=== PATIENT | female | born 1990 | race Caucasian/White ===

== ENCOUNTER 2022-03-11 01:06 | Emergency (ER) | payer BC, SELFPAY ==
[2022-03-11 01:13] VITALS: BP 110/57; PULSE 60; RESP 18; TEMP 36.9; O2SAT 100; BMI 23.3
--- NOTE | 2022-03-11 01:13 | CTR_ITS ---
PROCEDURE INFORMATION: Exam: CT Abdomen And Pelvis With Contrast Exam date and time: 03/11/2022 1:56 AM Age: 31 years old Clinical indication: Abdominal pain; Localized; Left lower quadrant (llq); Patient HX: Llq pain with nausea; Additional info: Llq pain, severe TECHNIQUE: Imaging protocol: Computed tomography of the abdomen and pelvis with contrast. Radiation optimization: All CT scans at this facility use at least one of these dose optimization techniques: automated exposure control; mA and/or kV adjustment per patient size (includes targeted exams where dose is matched to clinical indication); or iterative reconstruction. Contrast material: OMNI 350; Contrast volume: 100 ml; Contrast route: INTRAVENOUS (IV); COMPARISON: No relevant prior studies available. RADIATION DOSE METRICS: Total DLP (mGy-cm): 355.31 FINDINGS: Lungs: The visualized lung bases are clear. Liver: Numerous tiny hepatic cystic foci are visualized. These are subcentimeter in size. Liver is mildly enlarged. Gallbladder and bile ducts: No calcified gallstones or biliary dilation identified. Pancreas: Unremarkable with no suspicious mass. No ductal dilation. Spleen: The spleen is not enlarged. No suspicious enhancing mass is noted. Adrenal glands: Normal. No mass. Kidneys and ureters: No solid renal mass or hydronephrosis. Stomach and bowel: The colon is moderately fecal filled. Occasional sigmoid diverticula. Tortuous left colon. Appendix: Normal appendix. Intraperitoneal space: Small pelvic free fluid. Vasculature: No AAA or acute vascular lesion identified. Lymph nodes: No enlarged lymph nodes. Urinary bladder: Unremarkable as visualized. Reproductive: A left ovarian cystic lesion measures up to 2.6 cm. Anteverted uterus. Bones/joints: No acute fracture. Soft tissues: No acute or suspicious finding noted. CT/CT abdomen pelvis w con* [id number] IMPRESSION: 1. Left ovarian 2.6 cm cyst with mild to moderate pelvic free fluid. A hemorrhagic cyst or ruptured follicle is very likely. Consider need for pelvic ultrasound. 2. Moderately fecal filled colon. No small bowel obstruction, abscess or free air. 3. Large liver with numerous minute hepatic cysts as described.
--- NOTE | 2022-03-11 01:14 | W.ED.ABDPA2 ---
Documented by User: [email or web address] Hi 03/11/22 03:17 HPI - Abdominal Pain General: Chief Complaint: Abdominal Pain Stated Complaint: ABD Pain Time Seen by Provider: 03/11/22 01:09 History of Present Illness: 31-year-old female comes in today with left lower quadrant abdominal pain. Patient reports pain started this morning. Patient denies any abnormal vaginal discharge or bleeding. Last menstrual cycle was 1 month ago. Patient has no chronic medical problems. Patient takes no routine medications. Patient reports that the pain is worsened this evening. Patient appears nontoxic. Patient appears in moderate to severe pain. Associated Symptoms: Denies fever(s) Review of Systems Const: Denies: fever(s) GI: Reports: abdominal pain Physical Exam Const: COMMON NORMALS: alert HENMT: COMMON NORMALS: normocephalic HEAD & SCALP: normocephalic NOSE: Normal nares present Neck/C-Spine: COMMON NORMALS: full ROM Resp: COMMON NORMALS: normal respiratory effort and clear to auscultation bilaterally AUSCULTATION: clear to auscultation bilaterally Cardio: COMMON NORMALS: regular rate and regular rhythm RATE: regular rate RHYTHM: regular rhythm GI: COMMON NORMALS: Soft to palpation AUSCULTATION: Yes normoactive bowel sounds PALPATION: Yes Soft to palpation and Yes Tenderness to palpation present (GI) Details: LLQ Extremity: COMMON NORMALS: no pedal edema Neuro: SENSORIUM/ORIENTATION: Yes alert Skin: COMMON NORMALS: turgor normal GENERAL SKIN EXAM: turgor normal Course ED course: 0230, patient reports some improvement in pain to the left lower quadrant of abdomen. Patient does have waves of pain though that is uncomfortable at times. We are awaiting CT report and urinalysis report. 0316, reviewed with patient abnormality on the CT showing left ovarian cyst/ruptured recommending ultrasound for further evaluation to rule out ovarian torsion. Patient reported understanding and agreed to plan. Dr. Cadet was informed of patient and agreed to assume care. Vital Signs: Vital signs: Vital Signs Temperature 98.4 F 03/11/22 01:13 Pulse Rate 60 03/11/22 01:13 Respiratory Rate 16 03/11/22 01:29 Blood Pressure 110/57 03/11/22 01:13 Pulse Oximetry 100 03/11/22 01:13 Oxygen Delivery Me thod 03/11/22 01:13 MDM - Abdominal Pain Medical Decision Making Patient comes in today with complaints of left lower quadrant abdominal pain. On exam patient's abdomen soft with normoactive bowel sounds tenderness in the left lower quadrant. Differential diagnosis includes but not limited to ovarian cyst, ovarian torsion, renal calculi, diverticulitis, constipation, appendicitis. Lab Data 03/11/22 01:25 03/11/22 01:25 Labs/Radiology: Radiology Impressions Abdomen/Pelvis CT 03/11/22 01:13 IMPRESSION: 1. Left ovarian 2.6 cm cyst with mild to moderate pelvic free fluid. A hemorrhagic cyst or ruptured follicle is very likely. Consider need for pelvic ultrasound. 2. Moderately fecal filled colon. No small bowel obstruction, abscess or free air. 3. Large liver with numerous minute hepatic cysts as described. Pelvis Ultrasound 03/11/22 03:09 IMPRESSION: 1. Large bilateral ovaries, which does raise concern for PCOS. Advise correlation. 2. No evidence of torsion. 3. Small left ovarian cyst or follicle. 4. Small pelvic free fluid. Laboratory Results WBC 11.1 10^3/uL (4.0-10.0) H 03/11/22 01:25 RBC 3.96 10^6/uL (4.1-5.3) L 03/11/22 01:25 Hgb 12.2 g/dL (11.5-15.3) 03/11/22 01:25 Hct 37.1 % (37.0-47.0) 03/11/22 01:25 MCV 93.7 fl (81-99) 03/11/22 01:25 MCH 30.8 pg (28.0-34.0) 03/11/22 01:25 MCHC 32.9 g/dL (30.0-36.0) 03/11/22 01:25 RDW 12.0 % (12.1-15.1) L 03/11/22 01:25 Plt Count 251 10^3/cmm (130-400) 03/11/22 01:25 MPV 11.1 fL (7.4-10.4) H 03/11/22 01:25 Neut % (Auto) 56.6 % 03/11/22 01:25 Lymph % (Auto) 34.2 % 03/11/22 01:25 [place] % (Auto) 7.4 % 03/11/22 01:25 Eos % (Auto) 1.2 % 03/11/22 01:25 Baso % (Auto) 0.4 % 03/11/22 01:25 Neut # (Auto) 6.31 10^3/uL (1.8-7.7) 03/11/22 01:25 Lymph # (Auto) 3.8 10^3/uL (0.8-4.8) 03/11/22 01:25 [place] # (Auto) 0.8 10^3/uL (0.2-0.9) 03/11/22 01:25 Eos # (Auto) 0.1 10^3/uL (0.0-0.8) 03/11/22 01:25 Baso # (Auto) 0.0 10^3/uL (0.0-0.1) 03/11/22 01:25 Nucleated RBC % (auto) 0 % 03/11/22 01:25 Nucleated RBCs # 0.0 /100WBC 03/11/22 01:25 Sodium 136 mmol/L (136-145) 03/11/22 01:25 Potassium 3.6 mmol/L (3.5-5.1) 03/11/22 01:25 Chloride 101 mmol/L (98-107) 03/11/22 01:25 Carbon Dioxide 23 mmol/L (22-29) 03/11/22 01:25 Anion Gap 15.6 (5-19) 03/11/22 01:25 BUN 18 mg/dL (6-20) 03/11/22 01:25 Creatinine 0.7 mg/dL (0.5-0.9) 03/11/22 01:25 GFR Calculation 96.4 mL/min (90-130) 03/11/22 01:25 Glucose 109 mg/dL (65-115) 03/11/22 01:25 Calculated Osmolality 284 mOsm/kg (285-295) L 03/11/22 01:25 Calcium 8.8 mg/dL (8.5-10.5) 03/11/22 01:25 Total Bilirubin 0.5 mg/dL (0.15-1.2) 03/11/22 01:25 AST 16 U/L (0-32) 03/11/22 01:25 ALT 11 U/L (0-33) 03/11/22 01:25 Alkaline Phosphatase 49 U/L (35-105) 03/11/22 01:25 Total Protein 7.0 g/dL (6.6-8.7) 03/11/22 01:25 Albumin 4.3 g/dL (3.5-5.2) 03/11/22 01:25 Globulin 2.7 g/dL (1.3-4.6) 03/11/22 01:25 Lipase 75 U/L (13-60) H 03/11/22 01:25 HCG, Qual Negative (Negative) 03/11/22 01:25 Urine Color Yellow (Yellow) 03/11/22 02:11 Urine Appearance Clear (CLEAR) 03/11/22 02:11 Urine pH 8 (5-7) H 03/11/22 02:11 Ur Specific [place] 1.015 (1.005-1.030) 03/11/22 02:11 Urine Protein Neg (Negative) 03/11/22 02:11 Urine Glucose (UA) Norm (Normal) 03/11/22 02:11 Urine Ketones 1+ (Negative) H 03/11/22 02:11 Urine Blood Neg (Negative) 03/11/22 02:11 Urine Nitrate Negative (Negative) 03/11/22 02:11 Urine Bilirubin Neg (Negative) 03/11/22 02:11 Prot Sulfosalicylic Acd Negative (Negative) 03/11/22 02:11 Urine Urobilinogen Norm mg/dL (Negative) 03/11/22 02:11 Ur Leukocyte Esterase Negative (Negative) 03/11/22 02:11 Discharge Plan Discharge Patient Disposition: Home Clinical Impression: Abdominal pain, Ovarian cyst Condition: Stable Prescriptions: New hydrocodone-acetaminophen 5-325 mg tablet 1 tab PO Q6H PRN (Reason: pain) Qty: 14 0RF ondansetron 4 mg tablet,disintegrating 4 mg PO Q6H PRN (Reason: nausea and vomiting) Qty: 14 0RF Discharge Orders: Discharge ED (Routine); Ordered 03/11/22 Ordered By: Orquidea Cadet Discharge Diet: Advance as tolerated Discharge Activity: Resume usual activity Patient Instructions: Ovarian Cyst (ED), Abdominal Pain (ED), Opioid Safety Coding Level of Care Code ED Bar Tacker for Chg Fwd Exam Comprehensive Documented by User: Orquidea Cadet MD 03/11/22 05:31 HPI - Abdominal Pain General: Chief Complaint: Abdominal Pain Stated Complaint: ABD Pain Time Seen by Provider: 03/11/22 01:09 Course Vital Signs: Vital signs: Vital Signs Temperature 98.4 F 03/11/22 01:13 Pulse Rate 60 03/11/22 01:13 Respiratory Rate 16 03/11/22 01:29 Blood Pressure 110/57 03/11/22 01:13 Pulse Oximetry 100 03/11/22 01:13 Oxygen Delivery Me thod 03/11/22 01:13 MDM - Abdominal Pain Medical Decision Making Patient comes in today with complaints of left lower quadrant abdominal pain. On exam patient's abdomen soft with normoactive bowel sounds tenderness in the left lower quadrant. Differential diagnosis includes but not limited to ovarian cyst, ovarian torsion, renal calculi, diverticulitis, constipation, appendicitis. Patient presents with abdominal pain likely from ovarian cyst ultrasound showed findings likely PCOS she has no signs of torsion her pains improved here she is to follow-up with her OB at [place] home we will prescribe her pain meds she is to return if worsening. Lab Data 03/11/22 01:25 03/11/22 01:25 Labs/Radiology: Radiology Impressions Abdomen/Pelvis CT 03/11/22 01:13 IMPRESSION: 1. Left ovarian 2.6 cm cyst with mild to moderate pelvic free fluid. A hemorrhagic cyst or ruptured follicle is very likely. Consider need for pelvic ultrasound. 2. Moderately fecal filled colon. No small bowel obstruction, abscess or free air. 3. Large liver with numerous minute hepatic cysts as described. Pelvis Ultrasound 03/11/22 03:09
[2022-03-11] MEDS: ketorolac 30 mg/mL INJ 15 MG IVP (01:28)
[2022-03-11 01:29] VITALS: RESP 16
[2022-03-11] MEDS: ondansetron 2 mg/ML SDV 2 mL 4 MG IVP (01:29)
[2022-03-11] MEDS: morphine 4 mg/mL SDV 1 mL IVP ×2 (01:29→03:28)
[2022-03-11 01:35] LABS: Basophils % 0.4 %; Eosinophils # 0.1 10^3/uL (0.0-0.8); Eosinophils % 1.2 %; Hematocrit 37.1 % (37.0-47.0); Hemoglobin 12.2 g/dL (11.5-15.3); Lymphocytes # 3.8 10^3/uL (0.8-4.8); Lymphocytes % 34.2 %; Mean Corpuscular HGB Conc 32.9 g/dL (30.0-36.0); Mean Corpuscular Hemoglobin 30.8 pg (28.0-34.0); Mean Corpuscular Volume 93.7 fl (81-99); Mean Platelet Volume 11.1 fL (7.4-10.4); Monocytes # 0.8 10^3/uL (0.2-0.9); Monocytes % 7.4 %; Neutrophils # 6.31 10^3/uL (1.8-7.7); Neutrophils % 56.6 %; Nucleated Red Blood Cells % 0 %; Platelet Count 251 10^3/cmm (130-400); Red Blood Count 3.96 10^6/uL (4.1-5.3); White Blood Count 11.1 10^3/uL (4.0-10.0)
[2022-03-11 01:48] LABS: HCG, Serum Qual Negative (Negative)
[2022-03-11 01:57] LABS: Alanine Aminotransferase 11 U/L (0-33); Albumin Level 4.3 g/dL (3.5-5.2); Alkaline Phosphatase 49 U/L (35-105); Anion Gap 15.6 (5-19); Aspartate Amino Transferase 16 U/L (0-32); Blood Urea Nitrogen 18 mg/dL (6-20); Calcium 8.8 mg/dL (8.5-10.5); Carbon Dioxide 23 mmol/L (22-29); Chloride 101 mmol/L (98-107); Globulin 2.7 g/dL (1.3-4.6); Glomerular Filtration Rate 96.4 mL/min (90-130); Glucose 109 mg/dL (65-115); Lipase 75 U/L (13-60); Osmolality Calculated 284 mOsm/kg (285-295); Potassium 3.6 mmol/L (3.5-5.1); Sodium 136 mmol/L (136-145); Total Bilirubin 0.5 mg/dL (0.15-1.2)
[2022-03-11] MEDS: iohexol 350 mg/mL 500 mL Btl (per mL) IV (02:04)
[2022-03-11 02:15] VITALS: BP 109/62; PULSE 64; RESP 20; O2SAT 98
[2022-03-11 02:19] LABS: Add Urine Microscopic? NO; Charge for UA Resulting for Rev
[2022-03-11 02:45] LABS: Bilirubin Urine Neg (Negative); Blood Urine Neg (Negative); Glucose Urine UA Norm (Normal); Ketones Urine 1+ (Negative); Leukocyte Esterase Urine Negative (Negative); Nitrate Urine Negative (Negative); Protein Urine Neg (Negative); Specific Gravity, Urine 1.015 (1.005-1.030); Sulfosalicylic Acid Urine Negative (Negative); Urine Appearance Clear (CLEAR); Urine Color Yellow (Yellow); Urobilinogen Urine Norm (Negative); pH Urine 8 (5-7)
--- NOTE | 2022-03-11 03:09 | USR_ITS ---
NOTE: Report was unsigned for reason: Order was edited. Original Signature date and time was: 03/11/2022 0519 PROCEDURE INFORMATION: Exam: US Pelvis Complete, Transabdominal and US Pelvis, Transvaginal Exam date and time: 03/11/2022 4:26 AM Age: 31 years old Clinical indication: Pelvic pain; Patient HX: G1-p1 just stopped breast feeding with severe left adnexal pain x 2-3 days; Additional info: Left ovarian cyst, R/O torsion TECHNIQUE: Imaging protocol: Real-time complete transabdominal and transvaginal pelvic ultrasound with image documentation. Transvaginal imaging was used for better evaluation of the endometrium, adnexa, and/or cervix. COMPARISON: CT abdomen pelvis w con* [id number] 11/03/2022 01:56 FINDINGS: Uterus: Uterus is normal. Endometrial stripe is normal. Right ovary/adnexa: The right ovary is large with a 16 cc volume. No torsion. Left ovary/adnexa: The left ovary is very large with a 67 cc volume. The left ovary contains a 2.2 cm cyst or follicle. No torsion. Intraperitoneal space: Small intraperitoneal fluid. Urinary bladder: Normal. [facility] US/US pelv w/transvag [id number] IMPRESSION: 1. Large bilateral ovaries, which does raise concern for PCOS. Advise correlation. 2. No evidence of torsion. 3. Small left ovarian cyst or follicle. 4. Small pelvic free fluid.
[2022-03-11 03:15] VITALS: BP 105/72; PULSE 67; RESP 18; O2SAT 100
[2022-03-11] MEDS: sodium chloride 0.9% 1,000 ML 999 ML IV (03:28)
[2022-03-11] MEDS: HYDROmorphone 1 mg/mL INJ 1 mL IVP (05:00)
[2022-03-11 06:04] VITALS: BP 95/54; PULSE 63; RESP 18; O2SAT 96
== END 2022-03-11 06:07 | disposition home or self-care (01) ==
PROVIDERS: Nurse Practitioner Family; Emergency Provider Emergency Medicine
DX: N83.202 Unspecified ovarian cyst, left side (principal); R10.32 Left lower quadrant pain
CPT/HCPCS: 74177; 76830; 76856; 80053; 81003; 83690; 84703; 85025; 96374; 96375; 96376; 99285; J1170; J1885; J2270; J2405; J7030; Q9967

== ENCOUNTER → 2023-09-05 07:54 | Outpatient (BNVA) | payer SELFPAY | PROVIDERS: Visit Provider Nurse Practitioner Women's Health | DX: N92.6 Irregular menstruation, unspecified (principal); Z34.90 Encounter for supervision of normal pregnancy, unspecified, unspecified trimester | CPT/HCPCS: 81025; 84702; 86850; 86900 ==

== ENCOUNTER → 2023-09-14 11:12 | Outpatient (BNVA) | payer SELFPAY | PROVIDERS: Visit Provider Nurse Practitioner Women's Health | DX: O26.891 Other specified pregnancy related conditions, first trimester (principal); Z3A.14 14 weeks gestation of pregnancy | CPT/HCPCS: 76801 ==

== ENCOUNTER → 2023-09-19 08:04 | Outpatient (BNVA) | payer SELFPAY | PROVIDERS: Visit Provider Nurse Practitioner Women's Health | DX: Z34.90 Encounter for supervision of normal pregnancy, unspecified, unspecified trimester (principal) | CPT/HCPCS: 80307; 84315; 84439; 84443; 84481; 85025; 86592; 86762; 86803; 86850; 86900; 87086; 87340; 87491; 87591; 87806 ==

== ENCOUNTER → 2023-09-26 11:59 | Outpatient (BNVA) | payer SELFPAY | PROVIDERS: Visit Provider Obstetrics & Gynecology | DX: Z12.4 Encounter for screening for malignant neoplasm of cervix (principal); O26.891 Other specified pregnancy related conditions, first trimester; Z3A.11 11 weeks gestation of pregnancy | CPT/HCPCS: 81000; 87624 ==

== ENCOUNTER → 2023-11-16 14:50 | Outpatient (BNVA) | payer SELFPAY | PROVIDERS: Visit Provider Obstetrics & Gynecology | DX: O26.892 Other specified pregnancy related conditions, second trimester (principal); Z3A.20 20 weeks gestation of pregnancy | CPT/HCPCS: 76805 ==